=== PATIENT | male | born 1970 | race Caucasian/White ===

== ENCOUNTER → 2019-09-08 07:09 | Day surgery (SDC) | payer OTHER ==
--- NOTE | 2019-09-02 14:16 | HP ---
PREOPERATIVE HISTORY AND PHYSICAL: DATE OF SURGERY/ADMISSION: 09/08/19 [facility] DATE OF VISIT/ENCOUNTER: 08/24/19 ATTENDING SURGEON: Nathaly Dwyer MD * (DICTATED BY XAVIER SANCHEZ0 PROCEDURE: Cyst excision, right index finger. HISTORY OF PRESENT ILLNESS: This is a 49-year-old male with complaints of pain in a cyst on his right index finger. He sustained an injury back in April 2019 when he slammed his finger in a sliding door. After that, he developed a lump on the dorsal aspect of his finger. He has also had some deformity of his fingernail as a result of this. 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 He denies any drainage from the finger. No numbness or tingling. He would like to have the cyst removed. PAST MEDICAL HISTORY: 1. Chronic back pain. 2. Recent urination frequency. He is currently being evaluated by urologist. PAST SURGICAL HISTORY: Hernia repair. MEDICATIONS: Ibuprofen p.r.n. ALLERGIES: No known drug allergies. FAMILY MEDICAL HISTORY: Heart disease, hypertension. SOCIAL HISTORY: The patient is a Union manager contracting/master plumber. He chews tobacco, has done so for 30 years. He denies recreational drug use. He drinks alcohol on occasion. REVIEW OF SYSTEMS: Negative for general, cephalic, cardiovascular, respiratory , GI. is positive for frequency. Negative other musculoskeletal, integumentary, endocrine, neurologic, and hematologic symptoms. Infectious Disease: Negative for MRSA, hepatitis C, and HIV. PHYSICAL EXAMINATION GENERAL: Well-developed, well-nourished 49-year-old male in no acute distress. VITAL SIGNS: Height 5 feet 10 inches, weight 196 pounds. Pulse rate 72, blood pressure 140/78. HEENT: Normocephalic, atraumatic. Pupils are equal, round, and reactive to light and accommodation. Extraocular movements are intact. Throat is clear. NECK: Supple. No palpable lymph nodes. PULMONARY: Lungs are clear to auscultation bilaterally. No wheezes, rales, or rhonchi. CARDIOVASCULAR: Regular rate and rhythm. S1, S2. No murmurs, rubs, or gallops. No edema. ABDOMEN: Positive bowel sounds. Soft, nontender. NEUROLOGICAL: Alert and oriented x3. Cranial nerves II through XII are intact. Sensation is intact to light touch. MUSCULOSKELETAL: On exam of his right hand, he has a mucous cyst on the dorsal aspect of his right index finger, which has caused a significant deformity of the fingernail. He has full flexion and extension of the finger and can make a full tight fist. There is no drainage from the wound but there is mild erythema. He can extend the finger against resistance. Neurovascular function is intact. IMAGING STUDIES: AP, lateral and oblique of the right index finger show no significant degenerative changes. IMPRESSION: Mucous cyst of right index finger. PLAN: The patient is scheduled to undergo a cyst excision from his right index finger on 09/08/19. He will return to the office 10 days postoperative for followup and suture removal. A prescription for tramadol was e-scribed to the patient's pharmacy for postoperative pain management. XAVIER SANCHEZ [id number]/[facility] #: [id number] ALEENA
[~2019-09-08 07:09] MED LIST: Buffered Lidocaine 1% SYRIN* 1 ML/SYRINGE INTRADERM ONE; Lactated Ringers 1000 ML Bag* 1,000 ML IV SCH; Lidocaine 1% INJ* 10 MG/ML 30 ML SDV ONE; Midazolam* 1 MG/ML 2 ML VIAL (2 MG) ONE; Naloxone* 0.4 MG/ML 1 ML VIAL IV PRN; Propofol* 10 MG/ML 20 ML BTL ONE; fentaNYL* 50 MCG/ML 2 ML VIAL (100 MCG VIAL) ONE
[2019-09-08 10:17] VITALS: BP 120/78
--- NOTE | 2019-09-08 11:42 | OP ---
DATE OF OPERATION: 09/08/19 [facility] DATE OF : 70 SURGEON: Nathaly Dwyer MD CONCAVING MACHINE OPERATOR: XAVIER Mtz ANESTHESIA: Local MAC. PRE-OP DIAGNOSIS: Right index finger mass. POST-OP DIAGNOSIS: Right index finger ganglion. OPERATIVE PROCEDURE: Removal of mass, right index finger. ESTIMATED BLOOD LOSS: Zero. TOURNIQUET TIME: About 10 minutes. INDICATIONS FOR PROCEDURE: Travis is a 49-year-old male who has a painful mass in the dorsal aspect of his right index finger which has caused a deformity of his finger nail. He presents for mass removal of right index finger. DESCRIPTION OF PROCEDURE: The patient was brought to the operating room, was given a sedation anesthetic and a digital block of 10 cc of 1% plain lidocaine. The skin of his right hand and forearm was prepped and draped in the usual sterile fashion. The hand and forearm were exsanguinated and the tourniquet elevated to 250 mmHg. An H-shaped incision was made over the DIP joint dorsally and we carefully dissected the skin flap off over the mass. The mass was ganglion cyst which was compressing the nail bed. It was removed in its entirety along with the stalk that connected to the DIP joint. Either side of the extensor tendon was incised longitudinally and the underlying osteophytes removed with a rongeur. The wound was irrigated and the skin edge was reapproximated with 4-0 nylon suture. The wound was dressed with Xeroform, 4x4 , Webril and Osmar wrap. The patient tolerated the procedure well. He was brought to the recovery room in good condition. [id number]/[facility] #: [id number] [facility]
== END | disposition home or self-care (01) ==
LOC: OREAST 07:09
PROVIDERS: ATTEND Orthopaedic Surgery
DX: M67.441 Ganglion, right hand (principal); Z72.0 Tobacco use; E11.8 Type 2 diabetes mellitus with unspecified complications; M54.5 Low back pain
CPT/HCPCS: 88304; J2250; J2704; J3010